=== PATIENT | female | born 1950 | race Caucasian/White ===

== ENCOUNTER 2016-08-21 12:15 | Emergency (ER) | payer OTHER, MEDICAID ==
[~2016-08-21] VITALS: Ht 162.6 cm; Wt 71.3 kg
[2016-08-21 12:31] VITALS: BP 132/73
--- NOTE | 2016-08-21 12:52 | NUR ---
Patient retruned to ED lobby via wheelchair after XRAY.
--- NOTE | 2016-08-21 13:13 | NUR ---
Patient called, no answer.
--- NOTE | 2016-08-21 13:45 | NUR ---
PATIENT PRESENTS TO ED WITH C/O LEFT ANKLE INJURY S/P SLIPPED AND FELL X 2 DAYS AGO SWELLING TO LEFT ANKLE TENDER---PT IS AMBULATORY WITH STEADY GAIT +2 PEDAL PULSES /POSTERIOR TIBIAL PULSE;DENIES N/V/D; SKIN IS PINK/WARM/DRY; AAOX4 WITH EVEN AND STEADY GAIT; LUNGS CLEAR BL; HR EVEN AND REGULAR; PT DENIES ANY FEVER, CP, SOB, OR COUGH AT THIS TIME; PATIENT STATES PAIN OF 6/10 AT THIS TIME;PATIENT POSITIONED FOR COMFORT; HOB ELEVATED; BEDRAILS UP X2; BED DOWN.
[2016-08-21 14:00] VITALS: BP 118/68
--- NOTE | 2016-08-21 14:11 | NUR ---
Patient discharged with v/s stable. Written and verbal after care instructions given and explained. Patient alert, oriented and verbalized understanding of instructions. Ambulatory with steady gait. All questions addressed prior to discharge. ID band removed. Patient advised to follow up with PMD. Rx of TYLENOL W/ given. Patient educated on indication of medication including possible reaction and side effects. Opportunity to ask questions provided and answered. CODEINE
== END 2016-08-21 14:11 | disposition home or self-care (01) ==
LOC: MED 12:15
DX: S82.832A Other fracture of upper and lower end of left fibula, initial encounter for closed fracture (principal); X58.XXXA Exposure to other specified factors, initial encounter; Y93.89 Activity, other specified; Y92.89 Other specified places as the place of occurrence of the external cause; Y99.8 Other external cause status
CPT/HCPCS: 29515; 73610; 73630; 99284

== ENCOUNTER 2019-02-09 07:13 | Emergency (ER) | payer MEDICAID, OTHER ==
[~2019-02-09] VITALS: Ht 162.6 cm; Wt 66.2 kg
[2019-02-09 07:23] VITALS: BP 140/77
--- NOTE | 2019-02-09 07:27 | NUR ---
PATIENT PRESENTS TO ED WITH C/O OCCIPITAL HEAD PAIN X1 WEEK . AAOX4 WITH EVEN AND STEADY GAIT; LUNGS CLEAR BL; HR EVEN AND REGULAR; PT DENIES ANY FEVER, CP, SOB, OR COUGH AT THIS TIME; DENIES N/V/D; SKIN IS PINK/WARM/DRY; PATIENT STATES PAIN OF 8/10 AT THIS TIME; VSS; PATIENT POSITIONED FOR COMFORT; HOB ELEVATED; BEDRAILS UP X2; BED DOWN. ER MD MADE AWARE OF PT STATUS.
--- NOTE | 2019-02-09 07:29 | NUR ---
Patient being evaluated by physician at bedside.
[2019-02-09] MEDS ORDERED: DEXAMETHASONE 10 MG/ML VIAL IM ONE (07:35)
[2019-02-09] MEDS ORDERED: KETOROLAC 60 MG/2 ML VIAL IM ONE (07:35)
--- NOTE | 2019-02-09 07:55 | NUR ---
PATIENT OUT OF UNIT FOR CT SCAN WITH [employer] SALES REPRESENTATIVE.
--- NOTE | 2019-02-09 08:30 | NUR ---
PATIENT IS BACK TO UNIT
[2019-02-09 09:04] LABS: APPEARANCE,URINE CLEAR (CLEAR); BILIRUBIN,URINE NEGATIVE (NEGATIVE); BLOOD, URINE NEGATIVE (NEGATIVE); COLOR,URINE YELLOW (YELLOW); LEUKOCYTE ESTERASE ,URINE 1+ (NEGATIVE); NITRITE, URINE NEGATIVE (NEGATIVE); UGLUCOSE NEGATIVE (NEGATIVE)
[2019-02-09 09:30] LABS: RBC,URINE 0-5 /HPF (0-5)
--- NOTE | 2019-02-09 09:30 | NUR ---
PATIENT IS RESTING IN BED, DENIES PAIN, NO S/S OF DISTRESS, WILL CONTINUE TO MONITOR.
[2019-02-09 09:31] LABS: WBC,URINE 0-5 /HPF (0-5)
--- NOTE | 2019-02-09 10:21 | NUR ---
Dr. Hernandez is evaluating the patient at bedside.
--- NOTE | 2019-02-09 11:04 | NUR ---
Patient discharged TO HOME, Written and verbal after care instructions given and explained. Patient alert, oriented and verbalized understanding of instructions. Ambulatory with steady gait. All questions addressed prior to discharge. ID band removed. Patient advised to follow up with PMD. Rx of PREDNISONE, CLINDAMYCIN, FIORICET given. Patient educated on indication of medication including possible reaction and side effects. Opportunity to ask questions provided and answered.
[2019-02-09 11:20] VITALS: BP 122/70
== END 2019-02-09 11:04 | disposition home or self-care (01) ==
LOC: MED 07:13
DX: R51 Headache (principal); M54.2 Cervicalgia
CPT/HCPCS: 70450; 72125; 81001; 87086; 96372; 99284; J1100; J1885